=== PATIENT | male | born 2000 | race Hispanic/Latino ===

== ENCOUNTER 2020-10-08 02:05 | Observation (INO) | payer SELFPAY ==
[2020-10-08 02:28] LABS: #Monocytes 1.6 thou/uL (0.11-0.59); #Neutrophils 13.5 thou/uL (1.40-6.50); %Basophils 0.2 % (0.0-1.0); %Eosinophils 0.2 % (0.0-10.0); %Lymphocytes 11.5 % (28.0-48.0); %Monocytes 9.4 % (0.0-4.0); %Neutrophils 78.7 % (31.0-61.0); Hemoglobin 15.1 g/dL (14.0-18.0); Mean Corpuscular HGB CONC 33.5 g/dL (32.0-36.0); Mean Corpuscular Hemoglobin 30.2 pg (25.0-35.0); Mean Platelet Volume 6.5 fL (7.4-10.4); Platelet Count 314 thou/uL (130-400); RBC Distribution Width 11.5 % (11.5-14.5); White Blood Cell (WBC) Count 17.1 thou/uL (4.8-10.8)
[2020-10-08 02:46] LABS: ALT (SGPT) 24 U/L (8-55); AST (SGOT) 37 U/L (5-34); Albumin 4.5 g/dL (3.5-5.0); Alkaline Phosphatase 68 U/L (50-130); Anion Gap 13 mmol/L (10-20); BUN (Urea Nitrogen) 10 mg/dL (8.9-20.6); Bilirubin, Total 0.7 mg/dL (0.2-1.2); Calc. Creatinine Clearance 0 mL/min (70-130); Calcium 8.9 mg/dL (7.8-10.44); Carbon Dioxide 27 mmol/L (22-29); Chloride 101 mmol/L (98-107); Glucose 114 mg/dL (70-105); Potassium 3.3 mmol/L (3.5-5.1); Protein, Total 7.5 g/dL (6.0-8.3); Sodium 138 mmol/L (136-145)
[2020-10-08 02:47] LABS: Bacteria/HPF None Seen HPF (None Seen); RBC/HPF 0-3 HPF (0-3); Squamous Epithelial None Seen HPF (0-3); WBC/HPF 0-3 HPF (0-3)
[2020-10-08 02:49] LABS: Clarity Clear (Clear); Glucose, Urine (Dipstick) Normal (Negative); Leukocyte Negative Leu/uL (Negative); Nitrite Negative (Negative); Protein, Urine (Dipstick) Negative (Neg-Trace); Specific Gravity, Urine 1.003 (1.002-1.036); pH, Urine 6.5 (5.0-9.0)
[2020-10-08 02:50] LABS: Bilirubin Negative (Negative); Blood, Urine Negative (Negative); Ketone, Urine Negative (Negative); Urobilinogen Normal mg/dL (Less than 2)
[2020-10-08] MEDS ORDERED: Ondansetron PF 4 MG/2 ML Vial ONE ×2 (04:12→09:19)
[2020-10-08] MEDS ORDERED: Piperacillin/Tazobactam 4.5 GM VIAL ONE (04:12)
[2020-10-08] MEDS ORDERED: Morphine 4 MG/ML VIAL ONE ×2 (04:12→07:24)
[2020-10-08] MEDS ORDERED: Ondansetron ODT 4 MG TAB SL PRN (05:15)
[2020-10-08] MEDS ORDERED: Sodium Chloride 0.9% 1,000 ML IV SCH (05:15)
[2020-10-08] MEDS ORDERED: Ondansetron PF 4 MG/2 ML Vial IVP PRN (05:15)
[2020-10-08] MEDS ORDERED: Morphine 4 MG/ML VIAL SLOW IVP PRN (05:16)
[2020-10-08] MEDS ORDERED: HYDROmorphone 0.5 MG/0.5 ML SYRINGE ONE (07:29)
[2020-10-08] MEDS ORDERED: Fentanyl 100 MCG/2 ML VIAL ONE (07:29)
[2020-10-08] MEDS ORDERED: XYLOCAINE 2%-EPI 1:100,000 20 ML VIAL ONE (07:32)
[2020-10-08] MEDS ORDERED: Bupivacaine 0.25% HCL 30 ML VIAL ONE (07:32)
[2020-10-08] MEDS ORDERED: Ketorolac Tromethamine 30 MG/ML VIAL ONE ×2 (08:35→09:19)
[2020-10-08] MEDS ORDERED: Glycopyrrolate 0.2 MG/ML 5 ML SYRINGE ONE (09:19)
[2020-10-08] MEDS ORDERED: Dexamethasone 20 MG/5 ML VIAL ONE (09:19)
[2020-10-08] MEDS ORDERED: PROPOFOL 200 MG/20 ML VIAL ONE (09:19)
[2020-10-08] MEDS ORDERED: Lidocaine 1% PF 5 ML VIAL ONE (09:19)
[2020-10-08] MEDS ORDERED: Rocuronium Bromide 10 MG/ML (10ML VIAL) ONE (09:19)
--- NOTE | 2020-10-08 09:52 | HP ---
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 CAT scan demonstrating changes consistent with appendicitis. He was kept in the emergency room as an outpatient overnight with intravenous fluids and antibiotics. ALLERGIES: NONE. TOBACCO: Socially occasionally. ALCOHOL: Socially occasionally. MEDICATIONS: None routinely. PAST SURGICAL/MEDICAL HISTORY: Noncontributory. PHYSICAL EXAMINATION: GENERAL: The patient is in no acute distress. VITAL SIGNS: 180 pounds, 98.9 degrees, 76, 20, 139/70. HEAD, EYES, EARS, NOSE AND THROAT: Unremarkable. LUNGS: Clear to auscultation. CARDIAC: Regular rate and rhythm without murmur or gallop. ABDOMEN: Soft, tenderness in right lower quadrant rebound. Positive Rovsing sign. EXTREMITIES: Unremarkable. No ankle edema. LABORATORY DATA: As noted above. CMP normal. ASSESSMENT AND PLAN: Acute appendicitis, COVID negative. PLAN: Laparoscopic video appendectomy. Risks and benefits explained. [employer] Coordinator service used. He consents. Questions answered. Job ID: [id number]
[2020-10-08 09:57] LABS: SARS-CoV-2 PCR by NAA Not Detected (NotDetected)
[2020-10-08] MEDS ORDERED: Piperacillin/Tazobactam 4.5 GM in Sodium Chloride 0.9% 100 ML IVPB SCH (10:00)
--- NOTE | 2020-10-08 10:13 | OP ---
DATE OF PROCEDURE: 10/08/2020 PREOPERATIVE DIAGNOSIS: Acute appendicitis. POSTOPERATIVE DIAGNOSIS: Acute appendicitis. PROCEDURE PERFORMED: Laparoscopic video appendectomy. ANESTHESIA: General, local 0.5% Marcaine 30 mL mixed with 1% Xylocaine with epinephrine 20 mL. DESCRIPTION OF PROCEDURE: The patient was taken to the operating room, where under general anesthesia, [place] catheter placed at the beginning of procedure, removed at the end. Abdomen was clipped of hair, prepared with ChloraPrep and draped in routine fashion. Infraumbilical incision made, pneumoperitoneum to 15 mmHg was obtained with a Veress needle, replaced with a 5 port and laparoscope inserted. Right lateral subcostal incision made and a 5 port placed. Suprapubic incision made and a 12 port placed. Appendix acutely inflamed. Mesoappendix was taken down with the LigaSure. The stump of the appendix divided in the cecal stump with Endo-SANDRA blue load stapler. Stapled cecal stump hemostatic after application of clips. Appendix removed, submitted to Pathology. Good hemostasis noted. Irrigant and pneumoperitoneum evacuated. Suprapubic fascia approximated with 0 Vicryl. Skin approximated with interrupted subdermal 4-0 Monocryl and [place] glue applied. The patient tolerated the procedure well. Note, patient is an outpatient and was not admitted. Job ID: [id number]
--- NOTE | 2020-10-08 10:23 | CT ---
PRELIMINARY REPORT/[facility]/EMERGENCY AFTER HOURS PROCEDURE: EXAM: CT Abdomen and Pelvis with Intravenous Contrast CLINICAL HISTORY: ABDOMINAL RLQ PAIN SINCE 7 AM DENIES N/V, FEVERS, OR OTHER SYMPTOMS TECHNIQUE: Axial computed tomography images of the abdomen and pelvis with intravenous contrast. CONTRAST: With; ISOVUE 370,80mL COMPARISON: None provided. FINDINGS: LUNG BASES: No basilar airspace consolidation or pleural effusion. LIVER: Unremarkable. GALLBLADDER AND BILE DUCTS: Unremarkable. No calcified stone. No ductal dilation. PANCREAS: Unremarkable. SPLEEN: Unremarkable. ADRENAL GLANDS: Unremarkable. KIDNEYS, URETERS, AND BLADDER: Unremarkable. No hydronephrosis or nephrolithiasis. No ureteral or bladder calculi. STOMACH AND BOWEL: No obstruction. No wall thickening. No CT evidence of colitis or acute diverticulitis. APPENDIX: The appendix is dilated measuring approximately 9.6 mm in diameter. There is mild periappendiceal fa t stranding within the right lower abdominal quadrant. No evidence of abscess or perforation. PERITONEUM: No free fluid. No free air. LYMPH NODES: No lymphadenopathy. REPRODUCTIVE: Unremarkable as visualized. VASCULATURE: No aortic aneurysm. BONES: No fracture or suspicious osseous abnormality. ABDOMINAL WALL AND SOFT TISSUES: Unremarkable. IMPRESSION: Overall findings concerning for early acute appendicitis with mild dilatation of the appendix and per iappendiceal fat stranding. No evidence of abscess or perforation. Recommend correlation with labor atory values and physical examination. ELECTRONICALLY SIGNED BY: Marcel Peña MD Oct 08, 2020 3:52:39 AM [employer]PRES[employer]IV[employer] This report is intended for review by the ordering physician only, in accordance of law. If you recei ve this report in error, please call [facility] at [phone]. FINAL REPORT CT ABDOMEN AND PELVIS PERFORMED WITH CONTRAST ENHANCEMENT: HISTORY: Right lower quadrant pain. FINDINGS: The lung bases are clear of any infiltrative process. The liver, spleen, pancreas, and gallbladder regions appear unremarkable. Right and left adrenal glands and right and left kidneys are normal. No free fluid. No significant periaortic or mesenteric adenopathy. CT OF PELVIS PERFORMED WITH CONTRAST ENHANCEMENT: Appendix is slightly dilated and fluid-filled. Some minimal periappendiceal fat stranding. No pelvi c lymphadenpathy or mass. IMPRESSION: 1. Findings concerning for early changes of appendicitis. 2. This report is in agreement with the temporary report issued by [facility]. POS: [facility]
[2020-10-08] MEDS ORDERED: Iopamidol-370 76% 500 ML 1 ML ONE (11:30)
== END 2020-10-08 10:52 | disposition home or self-care (01) ==
LOC: ERS 02:05 → ERHOLD 04:09
PROVIDERS: ADMIT Specialist; ATTEND Specialist
PROC: 0DTJ4ZZ Resection of Appendix, Percutaneous Endoscopic Approach (ICD-10-PCS; principal; 2020-10-08)
DX: K35.80 Unspecified acute appendicitis (principal); Z20.822 Contact with and (suspected) exposure to COVID-19
CPT/HCPCS: 36415; 74177; 80053; 81003; 85025; 87635; 88304; 96365; 96375; 96376; G0378; J1100; J1170; J1885; J2270; J2405; J2543; J2704; J3010; Q9967; S0020; U0003; U0005